=== PATIENT | female | born 1970 | race Caucasian/White ===

== ENCOUNTER 2019-03-27 06:28 | Emergency (ER) | payer BC, MEDICAID, SELFPAY ==
[~2019-03-27] VITALS: Ht 149.9 cm; Wt 73.4 kg
[2019-03-27 06:33] VITALS: BP 146/96
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
[2019-03-27] MEDS ORDERED: AZITHROMYCIN 250 MG TABLET ONE (07:07)
[2019-03-27] MEDS ORDERED: CEFTRIAXONE 250 MG ONE (07:07)
[2019-03-27] MEDS ORDERED: AZITHROMYCIN 500 MG TABLET PO ONE (07:30)
[2019-03-27] MEDS ORDERED: CEFTRIAXONE 250 MG IM ONE (07:30)
[2019-03-27 07:50] LABS: HCG UR SG 1.028 (1.003-1.030)
[2019-03-27 07:52] LABS: CULTURE INDICATED? YES; MICROSCOPIC INDICATED
== END 2019-03-27 08:25 | disposition home or self-care (01) ==
LOC: ED 06:59
DX: N30.00 Acute cystitis without hematuria (principal)
CPT/HCPCS: 81001; 81025; 87086; 96372; 99283; J0696